=== PATIENT | female | born 1985 | race Two or more races ===

== ENCOUNTER → 2024-10-28 | Outpatient (CLI) | payer BC, SELFPAY ==
--- NOTE | 2024-10-28 11:30 | XR_ITS ---
Examination: Transvaginal ultrasound of the pelvis, complete Technique: Transvaginal sonographic images pelvis performed using medina scale imaging Exam date and time: 09/27/2024 1239 hours INDICATIONS: Vaginal bleeding beginning 2 months ago FINDINGS: Uterus 7.7 x 5.8 x 6.8 cm Small endometrial cyst 7 mm No uterine mass or intrauterine gestation Endometrial stripe 0.8 cm Right ovary 4.0 cm arterial flow 17 mm follicular cyst Left ovary 3.5 cm arterial flow 13 mm follicular cyst IMPRESSION: No uterine solid mass or intrauterine gestation No adnexal solid mass.
--- NOTE | 2024-10-28 11:30 | XR_ITS ---
Examination: Pelvic ultrasound, transabdominal, complete Technique: Transabdominal ultrasound of the pelvis performed using grayscale imaging Exam date and time: October 28 2024 1217 hours INDICATIONS: Abnormal vaginal bleeding beginning 2 months ago FINDINGS: Uterus 9.3 x 5.2 x 6.6 cm No uterine mass or intrauterine gestation Right ovary 3.9 cm arterial flow Left ovary 4.3 cm arterial flow Endometrial stripe 0.8 cm IMPRESSION: Negative study
--- NOTE | 2024-10-28 12:30 | XR_ITS ---
Examination: Ultrasound soft tissue extremity right and left groin TECHNIQUE: Grayscale sonographic images soft tissue right and left groin Exam date and time: July 28, 2025 at 12:29 PM INDICATIONS: Right-sided groin pain beginning 3 years ago. FINDINGS: Sonographic images of bilateral groins No hernia defect cystic or solid mass IMPRESSION: Unremarkable study
== END | disposition home or self-care (01) ==
LOC: CDIM 11:26
PROVIDERS: PCP Family Medicine; Referring Provider Nurse Practitioner Family; Visit Provider Nurse Practitioner Family
DX: N93.9 Abnormal uterine and vaginal bleeding, unspecified (principal); R10.31 Right lower quadrant pain
CPT/HCPCS: 76830; 76856; 76882

== ENCOUNTER 2025-04-07 13:39 | Outpatient (AMB) | payer BC, SELFPAY ==
[2025-04-07 14:12] VITALS: BP 104/71; PULSE 89; RESP 17; TEMP 36.6; O2SAT 96; BMI 34.9
--- NOTE | 2025-04-07 14:12 | GYNCLNT_ITS ---
Vital Signs 04/07/25 14:12 Height 1.55 m Height Method Measured Weight 83.971 kg Weight Measurement Method Standing Scale BMI 34.9 BP 104/71 Blood Pressure Source Automatic Cuff Blood Pressure Location Right Upper Arm Position Sitting Respiration 17 Pulse 89 Pulse Source Monitor Temp 97.8 F Temp Source Temporal Artery Scan Pulse Oximetry (%) 96 Oxygen Delivery Method Room Air Allergies/Home Meds Allergies & Medications Allergies NKA* Allergy (Uncoded 04/07/25 14:12) Medication Reconciliation No Known Home Medications 04/07/25 [History Confirmed 04/07/25] Intake Visit Data Collection New Patient or Established: New Patient (never been to [facility]) Reason for Visit:: REF IRREGULAR MENSES Consent obtained for Telemed Visit: No Seen by Clinical Staff ONLY (RN/MA): No Lacquer Machine Feeder Required: No Do You Feel Safe at Home: Yes Authorities Contacted: N/A PCP or OBGYN visit in last 3 months: No Hx Now: No Are you currently on any form of Control: No Last menstrual period: 04/01/25 Pain Present Currently: No Pain Scale Used: Denney-Ann/Numerical Pain scale:: 0 Smoking Status Smoking Status: Never smoker 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 1. Little interest or pleasure in doing things: not at all 2. Feeling down, depressed, or hopeless: not at all Total score: 0 PHQ-9 3. Trouble falling or staying asleep, or sleeping too much: Not at all 4. Feeling tired or having little energy: Not at all 5. Poor appetite or overeating: Not at all 6. Feeling bad about yourself - or that you are a failure or have let yourself or your family down: Not at all 7. Trouble concentrating on things, such as reading the newspaper or watching television: Not at all 8. Moving or speaking so slowly that other people could have noticed? - Or the opposite - being so fidgety or restless that you have been moving around a lot more than usual: not at all 9. Thoughts that you would be better off or of hurting yourself in some way: Not at all Total score: 0 If you checked off any problems, how difficult have these problems made it for you to do your work, take care of things at home, or get along with other people?: not difficult at all Source: Developed by Drs. Varinder Oliveros, Brielle Man, Chilo Staley and colleagues, with an educational peace from [employer]. Social History Living Situation History Lives With: Family Housing: House Tobacco History Smoking Status: Never smoker Alcohol History Alcohol Intake: Never Domestic Abuse History Do You Feel Safe at Home: Yes History of Present Illness HPI Narrative Savanna Gordon is a 39-year-old female presenting for evaluation of abnormal uterine bleeding and a questionable endometrial cyst found on a recent ultrasound. The patient reports that over the past 5-6 months, her menstrual cycles have become irregular. She describes episodes where she would have her regular period, followed by spotting two weeks later. This pattern was then followed by skipping a period entirely, resulting in a gap of about a month and a half between cycles. When her periods did occur, they were notably heavier than usual, accompanied by larger than normal blood clots. The patient notes that this irregular bleeding pattern has occurred twice. She emphasizes that this is a new development, as she has not experienced such irregularities throughout her life before. The abnormal bleeding prompted her healthcare provider to order a transvaginal ultrasound on October 28, 2024, which revealed a small endometrial cyst measuring 7 millimeters. In addition to the irregular bleeding, the patient mentions recent growth of facial hair, which led to her provider's concern about potential hormonal imbalances. She also discloses that she has not been using any form of control for the past 4-5 months. The patient and her partner have been open to conception for approximately 4 years but have been unsuccessful in achieving . While they are not actively trying to conceive at present, they would welcome a if it were to occur. The patient's medical history includes two previous pregnancies resulting in two children. She recalls receiving a shot after her first due to her blood type, suggesting a history of Rh incompatibility management. She has a history of ovarian cyst, which has resolved. The patient is currently taking Vitamin D supplements due to low levels noted in recent lab results. ROS: General: Positive for irregular menstrual cycles, heavy menstrual bleeding with blood clots. Skin: Positive for increased facial hair growth. Genitourinary: Positive for spotting between periods. Diagnostic Test Results and Labs: Transvaginal ultrasound (10/28/2024): - Uterus: 7.7 x 5.8 x 6.8 cm - Endometrial cyst: 7 mm - Endometrial stripe: 0.8 cm - Right ovary: 4 cm, 17 mm follicular cyst with arterial flow - Left ovary: 3.5 cm, 13 mm follicular cyst with arterial flow Labs (02/18/2025): - Hemoglobin: 12.9 g/dL - T4: 1.2 - FSH: 2.7 - Hemoglobin A1c: 5.1% - LH: 2.4 - TSH: normal (value not specified) - Vitamin D: low (value not specified) - CBC, chemistry panel (liver and kidney function): normal (values not specified) - Lipid profile: overall good (values not specified) Exam General General Appearance: alert, in no apparent distress and healthy appearing Head Head exam: atraumatic Neck Neck exam: Present normal inspection and trachea midline Chest Chest inspection: Present normal inspection and symmetric chest wall rise External exam: Present normal external exam; Absent tenderness Neuro Neurological exam: Present oriented X3 Psych Psychiatric exam: Present normal affect and normal mood Office Procedures OB Clinic LOC & Office Proc's Nursing/Assessment Patient Status: Initial/New Patient OB Clinic Nursing Assessment: Medication Reconciliation, Update PMH in EMR and Vital Signs OB Clinic Coordination of Care: Complex Care and Chronic Disease 1-5, Consent,records obtained, informed consent, Education Simp Pt/Fam and 4+ Authorizations needed New Patient Charge New Patient Point Assignment: [id number] New Patient Point Charge: REHABILITATION SERVICES COORDINATOR Level 3 ([id number]) Assessment & Plan Diagnosis / Problem List (1) Abnormal uterine and vaginal bleeding, unspecified: Status: Acute Plan Abnormal Uterine Bleeding Assessment: - Irregular menstrual cycles, heavy bleeding with clots, and spotting between periods for past 5-6 months - Transvaginal ultrasound (Oct 28, 2024) showed small endometrial cyst measuring 7 mm - Differential diagnoses: benign fluid-containing cyst or endometrial polyp - Irregular bleeding pattern suggests estrogen-progesterone imbalance - Lab results (February 18, 2025) show normal levels of FSH, LH, TSH, and other basic metabolic parameters - Increased facial hair growth reported Plan: - Repeat transvaginal ultrasound to reassess endometrial cyst - Order targeted hormone panel: DHEA, testosterone, LH, FSH - [facility] - Follow-up appointment scheduled for next week to review results - Consider surgical removal (D&C) if endometrial cyst/polyp persists - Patient to track menstrual cycles using a mobile lucia or other method - Patient to use [id number] ovulation prediction kits starting on day 12 of cycle for 5 days - Order blood type test Secondary Infertility Assessment: - Inability to conceive for past 4 years despite desire for - Two previous successful pregnancies - No hormonal contraception used in past; only barrier methods - Recent cessation of all contraceptive methods - Anovulatory cycles possible cause of infertility Plan: - Patient to track menstrual cycles and use ovulation prediction kits as described above - Consider prescribing Clomid to induce ovulation if anovulation is confirmed - Educate on timing of intercourse around ovulation window (24 hours before and after ovulation) - Reassess fertility status at follow-up appointment
== END 2025-04-07 15:08 | disposition home or self-care (01) ==
PROVIDERS: PCP Family Medicine; Referring Provider Family Medicine; Supervising Provider Obstetrics & Gynecology; Visit Provider Obstetrics & Gynecology
DX: N93.9 Abnormal uterine and vaginal bleeding, unspecified (principal)
CPT/HCPCS: 99203; G0463

== ENCOUNTER → 2025-04-23 | Outpatient (CLI) | payer BC, SELFPAY ==
--- NOTE | 2025-04-23 11:00 | XR_ITS ---
Examination: Pelvic ultrasound, transabdominal, complete Technique: Transabdominal ultrasound of the pelvis performed using grayscale imaging Date and time of exam: April 23, 2025 1135 hours INDICATIONS: Irregular menses beginning 6 months ago FINDINGS: Uterus 11.6 cm endometrial stripe 1.2 cm No uterine mass or intrauterine gestation Right ovary 3.5 cm arterial flow small follicles Left ovary 5.4 cm arterial flow, 4.5 x 3.9 x 3.7 cm cyst IMPRESSION: Left ovarian simple cyst 4.5 x 3.9 x 3.7 cm
== END | disposition home or self-care (01) ==
PROVIDERS: PCP Physician Assistant; Referring Provider Obstetrics & Gynecology; Visit Provider Obstetrics & Gynecology
DX: N83.292 Other ovarian cyst, left side (principal)
CPT/HCPCS: 76856

== ENCOUNTER 2025-04-28 09:01 | Outpatient (AMB) | payer BC, SELFPAY ==
[2025-04-28 09:31] VITALS: BP 109/73; PULSE 6; RESP 17; TEMP 36.3; O2SAT 95; BMI 35.1
--- NOTE | 2025-04-28 09:31 | AMB.GYNCLNOT ---
Vital Signs 04/28/25 09:31 Height 1.55 m Height Method Measured Weight 84.368 kg Weight Measurement Method Standing Scale BMI 35.1 BP 109/73 Blood Pressure Source Automatic Cuff Blood Pressure Location Right Upper Arm Position Sitting Respiration 17 Pulse 6 L Pulse Source Monitor Temp 97.4 F Temp Source Temporal Artery Scan Pulse Oximetry (%) 95 Oxygen Delivery Method Room Air Allergies/Home Meds Allergies & Medications Allergies NKA* Allergy (Uncoded 04/07/25 14:12) Intake Visit Data Collection New Patient or Established: Established Patient (seen at [facility] within 3 years) Reason for Visit:: F\U LABS & ULTRASOUND Consent obtained for Telemed Visit: No Seen by Clinical Staff ONLY (RN/MA): No Student Financial Services Counselor Required: No Do You Feel Safe at Home: Yes Authorities Contacted: N/A PCP or OBGYN visit in last 3 months: Yes Date of Last PCP or OBGYN visit: 04/07/25 Hx Now: No Are you currently on any form of Control: No Last menstrual period: 04/01/25 Pain Present Currently: No Pain Scale Used: Denney-Ann/Numerical Pain scale:: 0 Smoking Status Smoking Status: Never smoker Log Chipper history Log Chipper History Menstrual regularity: regular Flow: normal Monthly: Yes How many days does period last: 3 Age at menarche: 15 Menopausal: No Currently sexually active: Yes Questionnaires Covid-19 Vaccine Questionnaire Has patient been vacinated for Covid-19 Have you been vacinated for Covid-19: Yes PHQ-9 PHQ-2 Over the last 2 weeks, how often have you been bothered by any of the following problems? 1. Little interest or pleasure in doing things: not at all PHQ-9 8. Moving or speaking so slowly that other people could have noticed? - Or the opposite - being so fidgety or restless that you have been moving around a lot more than usual: not at all Source: Developed by Drs. Varinder Oliveros, Brielle Man, Chilo Staley and colleagues, with an educational peace from [employer]. Social History Living Situation History Lives With: Family Housing: House Tobacco History Smoking Status: Never smoker Alcohol History Alcohol Intake: Never Domestic Abuse History Do You Feel Safe at Home: Yes History of Present Illness HPI Narrative Patient reports not tracking her menstrual cycle as recommended at her last visit, stating she did not purchase the ovulation test strips. She anticipates her next menstrual period to begin in the next 3-4 days, noting that her last period started around the 9th of the previous month. Savanna mentions that she typically experiences spotting for up to 4 days at the beginning of her menstrual cycle. Regarding her previous attempts at tracking ovulation, she recalls that when she used to backtrack, she would estimate ovulation around the 19th day of her cycle. She admits to calculating from the last day of her period rather than the first day as instructed. Savanna confirms that she has used ovulation test strips in the past and obtained positive results, though she notes these positive results occurred outside of her expected ovulation window. She is a 39-year-old female presenting for follow-up of abnormal uterine bleeding (AUB) and infertility. She was previously referred for evaluation of a questionable endometrial cyst. The patient completed the recommended blood work at [facility] laboratory in [place], as requested at her previous visit. Medical history includes abnormal uterine bleeding (AUB) and infertility. Diagnostic Test Results and Labs: - Transvaginal ultrasound (10/28/2024): Uterus: 7.7 x 5.8 x 6.8 cm Endometrial cyst: 7 mm Endometrial stripe: 0.8 mm Ovaries: Within normal limits with follicular cysts and arterial flow - Pelvic ultrasound (04/23/2025): Uterus: 11.6 cm Endometrial stripe: 1.2 mm No intrauterine abnormalities Right ovary: 3.5 cm with arterial flow Left ovary: 5.4 cm with arterial flow, 4.5 x 3.9 x 3.7 cm cyst Exam General General Appearance: alert, in no apparent distress and healthy appearing Head Head exam: atraumatic Neck Neck exam: Present normal inspection and trachea midline Chest Chest inspection: Present normal inspection and symmetric chest wall rise External exam: Present normal external exam; Absent tenderness Neuro Neurological exam: Present oriented X3 Psych Psychiatric exam: Present normal affect and normal mood Assessment & Plan Diagnosis / Problem List (1) Abnormal uterine and vaginal bleeding, unspecified: Status: Acute Plan Abnormal Uterine Bleeding (AUB) and Infertility: - Transvaginal ultrasound on 10/28/2024: uterus 7.7 x 5.8 x 6.8 cm, 7 mm endometrial cyst, endometrial stripe 0.8 mm. - Follow-up pelvic ultrasound on 04/23/2025: uterus 11.6 cm, endometrial stripe 1.2 mm, no intrauterine abnormalities. - Right ovary 3.5 cm, left ovary 5.4 cm with 4.5 x 3.9 x 3.7 cm presumed follicular cyst. - Previously noted endometrial cyst no longer present. Plan: - Patient to track menstrual cycle from first day of next period. - Begin ovulation testing on day 12 of cycle, continue for 5 days (days 12-16). - Await results of recent blood work (DHEA, testosterone, LH/FSH levels) from [facility] lab. - Clinician to call patient in the afternoon with lab results. - Determine follow-up appointment after reviewing lab results.
== END 2025-04-28 09:54 | disposition home or self-care (01) ==
PROVIDERS: Supervising Provider Obstetrics & Gynecology; Visit Provider Obstetrics & Gynecology
DX: N93.9 Abnormal uterine and vaginal bleeding, unspecified (principal); N97.9 Female infertility, unspecified
CPT/HCPCS: 99213; G0463